=== PATIENT | female | born 1965 | race Caucasian/White ===

== ENCOUNTER 2017-07-17 18:11 | Emergency (ER) | payer OTHER ==
[~2017-07-17] VITALS: Ht 157.5 cm; Wt 69.8 kg
[~2017-07-17 18:11] MED LIST: FER300 PO; PRI20 PO; VITAMIN C500 M4 PO; ZOC20 PO
[2017-07-17 20:18] LABS: BASOPHIL % 0.6 % (0-2); PLATELET COUNT 398 x10^3mcL (130-400); RED CELL DISTRIBUTION WIDTH 13.5 % (11.5-14.5)
[2017-07-17 20:27] LABS: CARBON DIOXIDE 28.6 mmol/L (21-32); CHLORIDE SERUM 103 mmol/L (98-107); GFR1 > 60 mL/min; GLUCOSE SERUM 131 mg/dL (74-106); POTASSIUM SERUM 3.8 mmol/L (3.5-5.1); SODIUM SERUM 141 mmol/L (136-145)
[2017-07-17 20:38] LABS: ALBUMIN 3.6 g/dL (3.4-5.0); ALKALINE PHOSPHATASE 92 U/L (46-116); ALT/SGPT 69 U/L (14-59); AST/SGOT 39 U/L (15-37); BILIRUBIN TOTAL 0.69 mg/dL (0.20-1.00); TOTAL PROTEIN, SERUM 7.7 g/dL (6.4-8.2)
[2017-07-18 00:15] VITALS: BP 119/83
[2017-07-18 00:26] LABS: UA SPECIFIC GRAVITY <=1.005 (1.005-1.035); microscopic required? YES; urine erythrocyte 1+ (NEGATIVE)
== END 2017-07-18 00:15 | disposition home or self-care (01) ==
LOC: ED 18:11
PROVIDERS: Emergency Medicine
DX: N20.1 Calculus of ureter (principal); M54.2 Cervicalgia; E78.00 Pure hypercholesterolemia, unspecified; Z88.6 Allergy status to analgesic agent
CPT/HCPCS: J2270; J7030; Q0162; Q9967